=== PATIENT | female | born 1980 | race Caucasian/White ===

== ENCOUNTER → 2016-07-29 | Outpatient (CLI) | payer OTHER ==
--- NOTE | 2016-07-29 11:29 | DIAGNOSTIC IMAGING REPORT ---
PROCEDURE: US COMPLETE PELVIC W/TRANSVAG INDICATION: PELVIC PAIN TECHNIQUE: Transabdominal and endovaginal siegel scale and color Doppler sonographic images of the female pelvis were obtained. COMPARISON: None. FINDINGS: TRANSABDOMINAL SCANS: The uterus is of normal size 10.9 x 3.5 x 4.9 cm Kidneys are although we did have some difficulty in visualizing the inferior poles. TRANSVAGINAL SCANS: The uterus is retroflexed Myometrium is normal. The endometrium measures 10.1 mm. Right ovary is normal measuring 3.5 x 1.5 x 2.7 cm The left ovary is normal measuring 3.3 x 2.3 x 2.4 cm IMPRESSION: 1. Normal uterus and ovaries and kidneys.
== END ==
LOC: US SRH 10:49
DX: N93.8 Other specified abnormal uterine and vaginal bleeding (principal); R10.2 Pelvic and perineal pain